=== PATIENT | male | born 1995 | race Caucasian/White ===

== ENCOUNTER 2021-01-03 18:08 | Emergency (ER) | payer OTHER ==
[~2021-01-03] VITALS: Ht 182.9 cm; Wt 59.0 kg
[2021-01-03 18:19] VITALS: BP 118/77
--- NOTE | 2021-01-03 19:28 | NUR ---
25 Y/O MALE CAME TO THE ED C/O HEADACHE X 1.5 WEEK. PT STATES SHARP PAIN OF 6/10 TO 9/10 THAT RADIATES TO TEMPORAL AREA, AND THAT THE PAIN IS CONSISTENT, "DOES NOT GO AWAY". PT IS A&OX4, GCS 15. [place] NOT HAVE ANY BLURRY VISION. DENIES ANY N/V/D. PMH: UPPER GI BLEED, ANXIETY NKA
--- NOTE | 2021-01-03 21:15 | NUR ---
DR. MARIE AT BEDSIDE EXAMINING PT
[2021-01-03] MEDS: MAG SULF 2000 MG/WATER PREMIX 50 ML IV ONE (22:28)
[2021-01-03] MEDS: NACL 0.9% 1,000 ML IV ONE (22:29)
[2021-01-03] MEDS: diphenhydrAMINE 50 MG/ML VIAL IVP ONE (22:29)
[2021-01-03] MEDS: PROCHLORPERAZINE 10 MG/2 ML VIAL IVP ONE (22:30)
--- NOTE | 2021-01-03 23:16 | NUR ---
PT TAKEN TO CT VIA WHEELCHAIR
[2021-01-04 00:05] VITALS: BP 110/75
--- NOTE | 2021-01-04 00:05 | NUR ---
Patient discharged with v/s stable. Written and verbal after care instructions given and explained. Patient verbalized understanding. Ambulatory with steady gait. All questions addressed prior to discharge. Advised to follow up with PMD.
== END 2021-01-04 00:05 | disposition home or self-care (01) ==
LOC: MED 18:08
DX: G43.909 Migraine, unspecified, not intractable, without status migrainosus (principal)
CPT/HCPCS: 70450; 96365; 96375; 99285; J0780; J1200; J3475; J7030